=== PATIENT | female | born 1985 | race Caucasian/White ===

== ENCOUNTER 2021-05-31 08:54 | Observation (INO) ==
[2021-05-31] MEDS: LACTATED RINGER'S 1,000 ML IV PRN ×3 (09:05→17:19)
--- NOTE | 2021-05-31 09:15 | Progress Note ---
Date of Service May 31, 2021 Assessment & Plan (1) Vaginal bleeding during , antepartum: Plan: 35yo at 34 weeks gestation Presents with spontaneous bleeding On arrival, vital show elevated BP Bedside sono; cephalic, placenta is anterior SPE; large clot in vagina, cervix is Ft/ thick and not effaced. plan labs ordered IVF BMTX series started NPO radiology sono ordered Results & Data ([facility]) Vital Signs (Past 12 Hours) Vital Signs Pulse BP 05/31/21 09:07 91 H 153/101 H 05/31/21 08:56 110 H 159/101 H
[2021-05-31] MEDS ORDERED: BETAMETH SOD PHOS/ACETATE IA 6 MG/ML IM STA (09:17)
[2021-05-31 09:42] LABS: Eosinophils # (auto) 0.18 K/uL (0-0.5); Eosinophils % (auto) 2.1 %; Hematocrit (blood only) 31.7 % (37-47); Immature Granulocytes # (auto) 0.04 K/uL (0.00-0.02); Immature Granulocytes % (auto) 0.5 %; Lymphocytes # (auto) 1.19 K/uL (1.2-3.4); Lymphocytes % (auto) 14.1 %; Mean Corpuscular Hgb Conc 34.7 g/dL (32-36); Mean Corpuscular Volume 95.2 fL (80-100); Mean Platelet Volume 8.9 fL (7.4-10.4); Monocytes # (auto) 0.59 K/uL (0.11-0.59); Neutrophils # (auto) 6.43 K/uL (1.4-6.5); Neutrophils % (auto) 76.3 %; Platelet Count 214 K/uL (130-400); RDW Coefficient of Variation 13.4 % (11.5-14.5); RDW Standard Deviation 46.5 fL (36.4-46.3); Red Blood Count 3.33 M/uL (4.2-5.4); White Blood Count 8.43 K/uL (4.8-10.8)
[2021-05-31 10:02] LABS: Calcium 8.7 mg/dl (8.5-10.1); Creatinine Clr Calc Pharmacy 181.1 ml/min; Est GFR (African American) 148.3 ml/min; Potassium 3.7 mmol/L (3.5-5.1)
[2021-05-31 10:23] LABS: Fibrinogen 419 mg/dl (184-400); INR 0.9 (0.9-1.1); Prothrombin Time 9.9 Seconds (9.0-12.0)
--- NOTE | 2021-05-31 11:00 | Ultrasound Report ---
US OB limited CLINICAL HISTORY: vaginal bleeding at 34 weeks COMPARISON STUDY: None. FINDINGS: Transabdominal scanning of the fetus was performed with sales representative [employer] images submitted. Th e cervix appears closed and measures up to 4.3 cm in length. The fetus is in a cephalic presentation. heart rate is 155 BPM. Normal amniotic fluid index of 13.8 cm. There is an anterior placenta. No subchorionic hematoma identified. A anatomic survey was not performed for this study. IMPRESSION: 1. Normal anterior placenta. No evidence for a subchorionic hematoma. 2. heart rate is 155 BPM. 3. The cervix is closed and measures 4.3 cm in length. ACT 112: Negative or not required by law. Electronically signed by: Adebayo Mi M.D. 05/31/2021 10:59 AM
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
[2021-05-31 12:17] LABS: Appearance Urine Clear (Clear); Bacteria Urine Automated Negative (Negative); Bilirubin Urine Negative (Negative); Blood Urine 3+ (Negative); Cast Urine Automated 0 /lpf (0-5); Color Urine Yellow; Epithelial Cell Urine Auto 20-30 /lpf (0-5); Glucose Urine UA Negative (Negative); Ketones Urine 1+ (Negative); Leukocyte Esterase Urine Negative (Negative); Nitrite Urine Negative (Negative); Protein Urine Negative (Negative); RBC Urine Automated >30 /hpf (0-4); Specific Gravity Urine 1.008 (1.000-1.030); Urobilinogen Urine Negative (Negative)
[2021-05-31 13:00] LABS: Creatinine Urine Random 36.6 mg/dl; Protein Creatinine Ratio Urine 0.2 (0-0.2)
[2021-05-31] MEDS ORDERED: LACTATED RINGER'S 1,000 ML IV PRN (14:11)
[2021-05-31] MEDS: ACETAMINOPHEN 325 MG TAB PO PRN (15:09)
[2021-05-31] MEDS ORDERED: SERTRALINE HCL 50 MG TABLET PO ONE (19:57)
[2021-05-31] MEDS ORDERED: CARBOHYDRATES FOR HYPOGLYCEMIA PO PRN (20:00)
[2021-05-31] MEDS ORDERED: GLUCOSE 40% GEL 15 GM TUBE PO PRN (20:00)
[2021-05-31] MEDS ORDERED: GLUCOSE 10 TABS/TUBE PO PRN (20:00)
[2021-05-31] MEDS ORDERED: DEXTROSE 50% 50 ML SYRINGE IV PRN (20:00)
[2021-05-31] MEDS ORDERED: GLUCAGON FOR INJ 1 MG VIAL IM PRN (20:00)
[2021-05-31] MEDS ORDERED: INSULIN DETEMIR FLEXPEN/FLEX TOUCH 100 UNITS/ML 3ML SC ONE (21:00)
[2021-06-01] MEDS: LACTATED RINGER'S 1,000 ML IV PRN (00:46)
[2021-06-01 05:36] LABS: Hematocrit (blood only) 32.4 % (37-47); Hemoglobin 11.2 g/dL (12.0-16.0); Mean Corpuscular Hemoglobin 33.6 pg (25-34); Mean Corpuscular Hgb Conc 34.6 g/dL (32-36); Mean Corpuscular Volume 97.3 fL (80-100); Platelet Count 223 K/uL (130-400); RDW Coefficient of Variation 13.4 % (11.5-14.5); Red Blood Count 3.33 M/uL (4.2-5.4); White Blood Count 10.37 K/uL (4.8-10.8)
[2021-06-01] MEDS: ACETAMINOPHEN 325 MG TAB PO PRN (07:21)
--- NOTE | 2021-06-01 08:50 | Obstetrical Progress Note ---
Date of Service June 01, 2021 Assessment & Plan Admission and Anticipated Discharge Date Admission Date: May 31, 2021 Subjective Patient is seen and examined Patient feel well, still has VB. Heavy bleeding slowed down yesterday and she had spotting in the afternoon. Passed a quarter size cloths at 2 am and wiping red blood on toiet paper every time using the BR and small amount on pads. She has been feeling crampy since last night. No LOF/ ctxs +FM's Received 1st dose of Betamethasone at 10 am yesterday Her has been complicated by 1) AMA 2) h/o prior 2 Csection in the past 3) h/o CHTN, not on meds 4) GDMA2, on insulin 5) h/p preeclampdia 6) depression, on Zoloft 7) VB in 3rd trimester. PE: Alert orinted, NAD, mildly anxious Abd: soft, NT, gravid Ext NT no edema SSE: small amount 2-3 ml blood in vagina, cleaned, minimal bleeding from cervical os, closed, soft FHR reactive [place]: mild irregular uterine activity Bed side US: Placenta: anterior, starts from fundus, ends at lower segment, not close to cervix, appears normal with no blood collection EFW: 2800 gr DIEGO: 15 cm Discussed with the patient for 2nd dose of Betamethasone and expectant management with possible delivery if bleeding becomes active I discussed her case with peds labor economist, who has another baby delivery and unable to manage 2 preterms and recommended transfer to [facility], NICU Results & Data ([facility]) Vital Signs (Past 12 Hours) Vital Signs Temp Pulse Resp BP 06/01/21 07:15 36.7 C 107 H 16 108/61 06/01/21 02:09 36.4 C L 88 18 138/66 05/31/21 22:18 36.7 C 81 143/84 H
[2021-06-01 09:04] LABS: Basophils # (auto) 0.01 K/uL (0-0.2); Basophils % (auto) 0.1 %; Eosinophils # (auto) 0.04 K/uL (0-0.5); Eosinophils % (auto) 0.4 %; Hematocrit (blood only) 30.7 % (37-47); Hemoglobin 10.8 g/dL (12.0-16.0); Immature Granulocytes # (auto) 0.07 K/uL (0.00-0.02); Immature Granulocytes % (auto) 0.7 %; Lymphocytes # (auto) 1.86 K/uL (1.2-3.4); Lymphocytes % (auto) 19.4 %; Mean Corpuscular Hemoglobin 33.8 pg (25-34); Mean Corpuscular Volume 95.9 fL (80-100); Mean Platelet Volume 8.8 fL (7.4-10.4); Monocytes # (auto) 0.59 K/uL (0.11-0.59); Monocytes % (auto) 6.2 %; Neutrophils % (auto) 73.2 %; Platelet Count 218 K/uL (130-400); RDW Coefficient of Variation 13.5 % (11.5-14.5); RDW Standard Deviation 46.7 fL (36.4-46.3); White Blood Count 9.57 K/uL (4.8-10.8)
[2021-06-01 09:15] LABS: Mean Corpuscular Hgb Conc 35.2 g/dL (32-36)
--- NOTE | 2021-06-01 09:37 | Obstetrical Progress Note ---
Date of Service June 01, 2021 Assessment & Plan Admission and Anticipated Discharge Date Admission Date: May 31, 2021 Subjective No NICU beds available at [facility] Patient desires to be transferred to [facility] They are accepting her. Results & Data ([facility]) Vital Signs (Past 12 Hours) Vital Signs Temp Pulse Resp BP 06/01/21 07:15 36.7 C 107 H 16 108/61 06/01/21 02:09 36.4 C L 88 18 138/66 05/31/21 22:18 36.7 C 81 143/84 H
[2021-06-01 09:45] LABS: Fibrinogen 391 mg/dl (184-400); INR 0.9 (0.9-1.1); Partial Thromboplastin Ratio 0.9; Partial Thromboplastin Time 23.8 Seconds (21.0-31.0); Prothrombin Time 9.9 Seconds (9.0-12.0)
[2021-06-01] MEDS ORDERED: BETAMETH SOD PHOS/ACETATE IA 6 MG/ML ONE (09:48)
[2021-06-01] MEDS ORDERED: BETAMETH SOD PHOS/ACETATE IA 6 MG/ML IM SCH (14:15)
== END 2021-06-01 10:25 | disposition home or self-care (01) ==
LOC: 4S1 08:54 → OPB 08:54 → 4S1 08:55